=== PATIENT | female | born 1955 | race Two or more races ===

== ENCOUNTER 2016-11-13 19:38 | Emergency (ER) | payer OTHER ==
[~2016-11-13] VITALS: Ht 157.5 cm; Wt 69.9 kg
[~2016-11-13 19:38] MED LIST: CYMBALTA30 MG ORAL; IBUPROFEN600 MG ORAL; MIRTAZAPINE15 M3 ORAL; PROPRANOLO20 MG/5 M1 PO
[2016-11-13] MEDS ORDERED: DuoNeb 0.5-3(2.5)mg/3ml neb HHN ONE (20:00)
[2016-11-13 20:02] VITALS: BP 136/82
[2016-11-13] MEDS ORDERED: GUAIFENESIN-CO118 ML ORAL (20:22)
[2016-11-13] MEDS ORDERED: ALBUTEROL SULF8.5 GM INH (20:27)
[2016-11-13 20:31] VITALS: BP 136/82
--- NOTE | 2016-11-14 00:36 | Emergency Room Report ---
History of Present Illness General Chief Complaint: Upper Respiratory Illness Source: Patient Present Illness HPI Patient is a 61-year-old female who presented after having increased cough and difficulty breathing. Patient gradual onset of symptoms. Patient had recently been in contact with a small child who had metapneumovirus. Patient stated that she had been having a intermittent nonproductive cough. Patient had reported fever. She had no exertional symptoms. Patient had describe having some difficulty breathing. Patient denied pain without cough. Allergies: Coded Allergies: AMOXICILLIN (Verified Allergy, Unknown, 07/09/15) severe yeast infection and rash GLUTEN (Unverified Allergy, Unknown, Rash, 05/05/16) Patient History Past Medical History: see triage record Reviewed Nursing Documentation: PMH: Agreed, PSxH: Agreed Nursing Documentation-PMH Hx Cardiac Problems: No Hx Cancer: No Hx Gastrointestinal Problems: Yes Hx Neurological Problems: Yes Hx Headaches: Yes Hx Weakness: Yes Hx Fatigue: Yes Review of Systems All Other Systems: negative except mentioned in HPI Physical Exam Vital Signs Date Time Temp Pulse Resp B/P Pulse Ox O2 Delivery O2 Flow Rate FiO2 11/13/16 19:40 98.2 84 18 133/84 96 Room Air General Appearance: well appearing, no apparent distress, alert, GCS 15 Head: normocephalic, atraumatic ENT: hearing grossly normal, normal voice Neck: full range of motion, supple Respiratory: lungs clear, normal breath sounds, no respiratory distress, speaking full sentences Cardiovascular #1: normal peripheral pulses, regular rate, rhythm Gastrointestinal: normal bowel sounds, non tender Musculoskeletal: normal inspection, back normal, no calf tenderness Neurologic: normal inspection, alert, oriented x3, responsive, 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 Differential diagnosis included but was not limited to bronchitis, pneumonia, pulmonary embolism, pericarditis, asthma, foreign body. Patient was given DuoNeb treatment Chest x-ray one view interpreted by me showed normal cardiac size without evident infiltrate and no pneumothorax. The patient was given prescription for cough syrup as well as for albuterol.The patient is advised to follow up with primary care doctor in 1-2 days. Patient is advised to return if any worsening condition or if any changes in status that are concerning. Last Vital Signs Date Time Temp Pulse Resp B/P Pulse Ox O2 Delivery O2 Flow Rate FiO2 11/13/16 20:31 98.1 87 16 136/82 100 Room Air Status: improved Disposition: HOME, SELF-CARE Condition: Stable Scripts Albuterol Sulfate* (ALBUTEROL SULFATE MDI*) 8.5 Gm Hfa.aer.ad 2 PUFF INH Q6H for For Cough, #1 EA 0 Refills Prov: Gonzalo Albarado 11/13/16 Guaifenesin/Codeine Phosphate (GUAIFENESIN-CODEINE LIQUID) 118 Ml Liquid 5 ML ORAL Q6H Y for For Cough, #118 ML 0 Refills Prov: Gonzalo Albarado 11/13/16 Patient Instructions: Viral Respiratory Infection Gonzalo Albarado Nov 14, 2016 00:36
--- NOTE | 2016-11-14 11:59 | Diagnostic Imaging Report ---
Indication: Dyspnea Comparison: 05/04/16 A single view chest radiograph was obtained. Findings: Cardiomediastinal appearance is within normal limits for age. Pulmonary vascularity is appropriate. The diaphragmatic contour is smooth and costophrenic angles are sharp. No pleural effusions are identified. The bones are osteopenic. Impression: No acute findings
== END 2016-11-13 20:32 | disposition home or self-care (01) ==
LOC: EMR 19:55
DX: J40 Bronchitis, not specified as acute or chronic (principal); Z88.1 Allergy status to other antibiotic agents; Z91.018 Allergy to other foods
CPT/HCPCS: 71010; 94640; 94664; 99284; J7620